=== PATIENT | male | born 1995 | race Caucasian/White ===

== ENCOUNTER 2017-04-25 22:59 | Emergency (ER) | payer BC, OTHER ==
[~2017-04-25] VITALS: Ht 195.6 cm; Wt 97.0 kg
[2017-04-25] MEDS ORDERED: CALC300T5 PO (23:14)
[2017-04-25] MEDS ORDERED: fentaNYL PF 100 MCG/2 ML VIAL IV PRN (23:30)
[2017-04-25] MEDS ORDERED: DICYCLOMINE 20 MG/2 ML AMPUL. IM ONE (23:45)
[2017-04-25] MEDS ORDERED: IOHEXOL 300 MG/ML 75 ML VIAL. IV ONE (23:45)
[2017-04-25] MEDS ORDERED: IV NORMAL SALINE 1,000ML 1,000 ML IV SCH (23:45)
[2017-04-25] MEDS ORDERED: ONDANSETRON PF 4 MG/2 ML VIAL. IV ONE (23:45)
[2017-04-25] MEDS ORDERED: CONTRAST GIVEN MC PRN (23:45)
--- NOTE | 2017-04-26 00:04 | RAD ---
CT Abdomen and Pelvis With Intravenous Contrast: History: Right-sided abdominal pain with nausea beginning today. Comparison: None. Technique: After administration of intravenous contrast, 75 mL of Omnipaque 300, CT of the abdomen and pelvis was performed. Exposure: One or more of the following individualized dose reduction techniques were utilized for this examination: 1. Automated exposure control 2. Adjustment of the mA and/or kV according to patient size 3. Use of iterative reconstruction technique Findings: Images of the lower chest demonstrate bilateral gynecomastia, incompletely visualized. Evaluation of enteric structures is limited by lack of oral contrast. Liver, gallbladder, pancreas, and bilateral adrenal glands are unremarkable. Splenomegaly is seen with the spleen measuring 14.7 cm in length. Bilateral kidneys enhance symmetrically. No bowel obstruction is identified. There appears to be some type of urachal remnant emanating from the dome of the urinary bladder. Appendix is enlarged and inflamed. Maximum appendiceal diameter is 1.4 cm. Appendicolith is present. Sympathetic free fluid is present in the pelvis. No perforation or abscess is identified at this time. Impression: 1. Acute appendicitis. No perforation or abscess identified. 2. Urachal remnant is seen involving the dome of the urinary bladder. 3. Splenomegaly. Electronically signed by: Alexander Velez MD (04/26/2017 12:01 AM)
[2017-04-26 00:21] LABS: BASO % 0 % (0-3); EOS % 0 % (0-3); HEMATOCRIT 43.8 % (39.0-53.0); LYMPH # 1.3 x10^3/uL (1.0-4.8); LYMPH % 12 % (24-48); MEAN CORPUSCULAR HEMOGLOBIN 29 pg (25-35); MEAN CORPUSCULAR HGB CONC 34 g/dL (31-37); MEAN CORPUSCULAR VOLUME 85 fL (79-100); MONO # 0.9 x10^3/uL (0.0-1.1); MONO % 8 % (0-9); NEUT # 8.8 x10^3uL (1.8-7.7); NEUT % 79 % (31-73); PLATELET COUNT 160 x10^3/uL (140-400); RED BLOOD COUNT 5.14 x10^6/uL (4.30-5.70); WHITE BLOOD COUNT 11.1 x10^3/uL (4.0-11.0)
[2017-04-26] MEDS ORDERED: predniSONE 20 MG TABLET PO ONE (00:30)
[2017-04-26 00:33] LABS: ALBUMIN 4.4 g/dL (3.4-5.0); ALBUMIN/GLOBULIN RATIO 1.2 (1.0-1.7); CALCIUM 9.1 mg/dL (8.5-10.1); CREATININE 1.3 mg/dL (0.7-1.3); GFR 69.7; TOTAL BILIRUBIN 0.6 mg/dL (0.2-1.0); TOTAL PROTEIN 8.2 g/dL (6.4-8.2)
[2017-04-26] MEDS ORDERED: CIPROFLOXACIN 400 MG IV ONE (00:46)
--- NOTE | 2017-04-26 00:51 | PHYS DOC ---
Adult General Chief Complaint Chief Complaint: ABDOMINAL PAIN HPI HPI Patient is a 21 year old male who presents with complaint of right lower quadrant abdominal pain. Patient states his symptoms started this morning and have progressively worsened ever since. Patient states that the pain is in his right lower quadrant. Patient rates his pain currently is 8 out of 10. Patient states that the pain initially was dull but has become more sharp and localized in his right lower quadrant. Patient states that he has had similar symptoms several months ago which resolved spontaneously. Patient denies any significant past medical history. The patient states that he has had no associated fevers, vomiting, or diarrhea. Patient does admit to nausea currently. Patient has not taken any medications at this time to help with symptoms. Review of Systems Review of Systems Constitutional: Denies fever or chills [] Eyes: Denies change in visual acuity, redness, or eye pain [] HENT: Denies nasal congestion or sore throat [] Respiratory: Denies cough or shortness of breath [] Cardiovascular: Denies chest pain or edema [] GI: Abdominal pain, nausea, denies vomiting, bloody stools or diarrhea [] : Denies dysuria or hematuria [] Musculoskeletal: Denies back pain or joint pain [] Integument: Denies rash or skin lesions [] Neurologic: Denies headache, focal weakness or sensory changes [] Current Medications Current Medications Current Medications Medications (Trade) Dose Ordered Sig/Jadiel Start Time Stop Time Status Last Admin Dose Admin Ciprofloxacin Lactate 200 ml @ 200 mls/hr 1X ONCE 04/26/17 00:45 04/26/17 01:44 UNV Dicyclomine HCl (Bentyl) 10 mg 1X ONCE 04/25/17 23:45 04/25/17 23:46 DC 04/25/17 23:45 10 MG Fentanyl Citrate (Fentanyl 2ml Vial) 50 mcg PRN Q15MIN PRN 04/25/17 23:30 04/26/17 23:29 04/26/17 00:12 50 MCG Info (Do NOT chart on this entry -- for MONITORING) 1 each PRN DAILY PRN 04/25/17 23:45 04/27/17 23:44 Iohexol (Omnipaque 300 Mg/ml) 75 ml 1X ONCE 04/25/17 23:45 04/25/17 23:46 DC 04/25/17 23:42 75 ML Metronidazole 100 ml @ 200 mls/hr 1X ONCE 04/26/17 00:45 04/26/17 01:14 UNV Ondansetron HCl (Zofran) 4 mg 1X ONCE 04/25/17 23:45 04/25/17 23:46 DC 04/25/17 23:45 4 MG Prednisone (Prednisone) 50 mg 1X ONCE 04/26/17 00:30 04/26/17 00:34 DC Sodium Chloride 1,000 ml @ 1,000 mls/hr Q1H 04/25/17 23:45 04/26/17 00:44 DC 04/25/17 23:45 1,000 MLS/HR Allergies Allergies Allergies Coded Allergies Type Severity Reaction Last Updated Verified peanut Allergy Severe 04/25/17 Yes amoxicillin Allergy Intermediate 04/25/17 Yes azithromycin Allergy Intermediate 04/25/17 Yes Physical Exam Physical Exam Constitutional: Alert, afebrile, appears in moderate discomfort. [] HENT: Normocephalic, atraumatic, bilateral external ears normal, oropharynx moist, no oral exudates, nose normal. [] Eyes: PERRLA, EOMI, conjunctiva normal, no discharge. [] Neck: Normal range of motion, no tenderness, supple, no stridor. [] Cardiovascular:Heart rate regular rhythm, no murmur [] Lungs & Thorax: Bilateral breath sounds clear to auscultation [] Abdomen: Bowel sounds normal, soft, right lower quadrant tenderness to palpation with guarding at McBurney's point, no rebound tenderness, no masses, no pulsatile masses. [] Skin: Warm, dry, no erythema, no rash. [] Back: No tenderness, no CVA tenderness. [] Extremities: No tenderness, no cyanosis, no clubbing, ROM intact, no edema. [] Neurologic: Alert and oriented X 3, normal motor function, normal sensory function, no focal deficits noted. [] Current Patient Data Lab Results Laboratory Tests Test 04/25/17 23:59 White Blood Count 11.1 x10^3/uL (4.0-11.0) H Red Blood Count 5.14 x10^6/uL (4.30-5.70) Hemoglobin 15.0 g/dL (13.0-17.5) Hematocrit 43.8 % (39.0-53.0) Mean Corpuscular Volume 85 fL (79-100) Mean Corpuscular Hemoglobin 29 pg (25-35) Mean Corpuscular Hemoglobin Concent 34 g/dL (31-37) Red Cell Distribution Width 13.0 % (11.5-14.5) Platelet Count 160 x10^3/uL (140-400) Neutrophils (%) (Auto) 79 % (31-73) H Lymphocytes (%) (Auto) 12 % (24-48) L Monocytes (%) (Auto) 8 % (0-9) Eosinophils (%) (Auto) 0 % (0-3) Basophils (%) (Auto) 0 % (0-3) Neutrophils # (Auto) 8.8 x10^3uL (1.8-7.7) H Lymphocytes # (Auto) 1.3 x10^3/uL (1.0-4.8) Monocytes # (Auto) 0.9 x10^3/uL (0.0-1.1) Eosinophils # (Auto) 0.0 x10^3/uL (0.0-0.7) Basophils # (Auto) 0.0 x10^3/uL (0.0-0.2) Sodium Level 138 mmol/L (136-145) Potassium Level 4.0 mmol/L (3.5-5.1) Chloride Level 102 mmol/L (98-107) Carbon Dioxide Level 24 mmol/L (21-32) Anion Gap 12 (6-14) Blood Urea Nitrogen 26 mg/dL (8-26) Creatinine 1.3 mg/dL (0.7-1.3) Estimated GFR (Cockcroft-Gault) 69.7 BUN/Creatinine Ratio 20 (6-20) Glucose Level 85 mg/dL (70-99) Calcium Level 9.1 mg/dL (8.5-10.1) Total Bilirubin 0.6 mg/dL (0.2-1.0) Aspartate Amino Transferase (AST) 20 U/L (15-37) Alanine Aminotransferase (ALT) 30 U/L (16-63) Alkaline Phosphatase 88 U/L (46-116) Total Protein 8.2 g/dL (6.4-8.2) Albumin 4.4 g/dL (3.4-5.0) Albumin/Globulin Ratio 1.2 (1.0-1.7) Lipase 83 U/L (73-393) EKG EKG Not performed [] Radiology/Procedures Radiology/[place] [id number] IMAGING REPORT Signed PATIENT: GUANAKITO VILLAGOMEZ ACCOUNT: [id number] : 1995 LOCATION: ER AGE: 21 SEX: M EXAM STATUS: REG ER ORD. PHYSICIAN: CHREYL DANIELLE MD REASON: right lower quadrant pain, rule out appendicitis PROCEDURE: CT ABD PELV W/ IV CONTRST ONLY CT Abdomen and Pelvis With Intravenous Contrast: History: Right-sided abdominal pain with nausea beginning today. Comparison: None. Technique: After administration of intravenous contrast, 75 mL of Omnipaque 300, CT of the abdomen and pelvis was performed. Exposure: One or more of the following individualized dose reduction techniques were utilized for this examination: 1. Automated exposure control 2. Adjustment of the mA and/or kV according to patient size 3. Use of iterative reconstruction technique Findings: Images of the lower chest demonstrate bilateral gynecomastia, incompletely visualized. Evaluation of enteric structures is limited by lack of oral contrast. Liver, gallbladder, pancreas, and bilateral adrenal glands are unremarkable. Splenomegaly is seen with the spleen measuring 14.7 cm in length. Bilateral kidneys enhance symmetrically. No bowel obstruction is identified. There appears to be some type of urachal remnant emanating from the dome of the urinary bladder. Appendix is enlarged and inflamed. Maximum appendiceal diameter is 1.4 cm. Appendicolith is present. Sympathetic free fluid is present in the pelvis. No perforation or abscess is identified at this time. Impression: 1. Acute appendicitis. No perforation or abscess identified. 2. Urachal remnant is seen involving the dome of the urinary bladder. 3. Splenomegaly. Electronically signed by: Alexander Pang MD (04/26/2017 12:01 AM) DICTATED AND SIGNED BY: ALEXANDER PAGN MD DATE: 04/25/17 2355 CC: CHERYL DANIELLE MD; PCP,UNKNOWN ~ [] Course & Med Decision Making Course & Med Decision Making Pertinent Labs and Imaging studies reviewed. (See chart for details) Patient's CT scan confirms acute appendicitis. Patient started on IV fluids, fentanyl, and Zofran. Due to the absence of general surgery at this hospital, the patient will require transfer to a facility with general surgery for further care. I spoke with Dr. Jane, general surgeon at [facility]. He accepted patient as a direct admission and asked that the patient be started on Flagyl and Cipro prior to transfer. Patient transferred by [facility] in stable condition. Dragon Disclaimer Dragon Disclaimer This chart was dictated in whole or in part using Voice Recognition software in a busy, high-work load, and often noisy Emergency Department environment. It may contain unintended and wholly unrecognized errors or omissions. Departure Departure: Impression: Primary Impression: Acute appendicitis Disposition: 05 XFER OTHER Condition: STABLE Referrals: PCP,UNKNOWN (PCP) Problem Qualifiers Primary Impression: Acute appendicitis Acute appendicitis type: with localized peritonitis Qualified Codes: K35.3 - Acute appendicitis with localized peritonitis CHERYL DANIELLE MD Apr 26, 2017 00:51
[2017-04-26 00:55] VITALS: BP 129/75
[2017-04-26] MEDS ORDERED: CIPROFLOXACIN 400MG PREMIX 200 ML IV ONE (01:00)
[2017-04-26] MEDS ORDERED: IV NORMAL SALINE 1,000ML 1,000 ML IV ONE (01:30)
== END 2017-04-26 01:23 | disposition short-term general hospital (02) ==
LOC: ER 22:59
DX: K35.3 Acute appendicitis with localized peritonitis (principal); Z88.1 Allergy status to other antibiotic agents; Z91.010 Allergy to peanuts
CPT/HCPCS: 36415; 74177; 80053; 83690; 85027; 96361; 96365; 96372; 96375; 99285; J0500; J2405; J3010; J3490; Q9967; J7030